=== PATIENT | female | born 1940 | race Caucasian/White ===

== ENCOUNTER 2016-07-03 17:01 | Emergency (ER) | payer BC, MEDICARE, OTHER ==
[2016-07-03 17:16] VITALS: BMI 26.6
[2016-07-03 17:19] VITALS: TEMP 99.5
--- NOTE | 2016-07-03 17:21 | EDPRACDOC ---
- General Information Chief Complaint: Dyspnea/Resp distress Stated Complaint: SHORTNESS OF BREATH Time Seen by Provider: 07/03/16 17:06 Information Source: Patient Mode Of Arrival: Ambulance Home Medications: Home Medications Furosemide [Lasix] 40 mg PO DAILY PRN 12/23/12 Alprazolam [Xanax] 0.5 - 1 mg PO BID 03/28/14 Gabapentin [Neurontin] 800 mg PO TID 08/22/14 Levothyroxine Sodium [Synthroid] 100 mcg PO DAILY 08/22/14 Promethazine [Phenergan] 25 mg PO TID PRN 08/22/14 Zolpidem Tartrate [Ambien Cr] 12.5 mg PO HS 08/22/14 Clonazepam [Klonopin] 1 mg PO HS 07/25/15 Lansoprazole [Prevacid] 30 mg PO DAILY 07/25/15 Morphine Sulfate [Morphine Sulfate ER] 30 mg PO TID 07/25/15 Oxycodone HCl/Acetaminophen [Percocet 10-325 mg Tablet] 1 tab PO Q6H PRN Azithromycin [Zithromax] 250 mg PO DAILY #4 tab 07/03/16 Ergocalciferol (Vitamin D2) [Vitamin D] 50,000 units PO Tu@0900 07/03/16 Allergies/Adverse Reactions: Allergies Allergy/AdvReac Type Severity Reaction Status Date / Time moxifloxacin HCl Allergy Intermediate Rash-Genera Verified 07/03/16 17:41 [From Avelox] lized - History of Present Illness Onset: TODAY HPI: PT HAS HAD SOB TODAY. SHE IS SUPPOSED TO WEAR OXYGEN 24 HRS/DAY SINCE HAVING BILATERAL PNEUMONIA IN OCTOBER. SHE HAS ONLY BEEN WEARING IT AT NIGHT. PT HAS HAD A COUGH. NO FEVER. Shortness of Breath: Moderate Relevant History: Reports: None Cough: Reports: Non-productive Rhinorrhea: Reports: None Ear Symptoms: Reports: None SOB Worsens with: Reports: Exertion SOB Improves with: Reports: Nothing Associated Signs and symptoms: Reports: Cough - Treatment Prior to ED Arrival Reported Medications/Treatment ESTIM[employer] PR[employer] MAKING Meds/Treatments Given O2 via Cannula EMS Treatment BLS IV No ED Past Medical History - Patient Medical History Cardiac History: Reports: Hypertension, Cardiac Catheterization, Syncope Respiratory History: Reports: COPD (With chronic respiratory failure and home O2 dependence.), Aspiration Pneumonia, Pneumonia GI/ History: Reports: Renal Disease (History of renal insufficiency), Urinary Tract Infection, Gastroesophageal Reflux, Ulcer (REQUIRED TRANSFUSION) Musculoskeletal History: Reports: Arthritis Psychological History: Reports: Anxiety. Denies: Depression, Substance Use Disorder Systemic History: Reports: Anemia, Hypothyroidism. Denies: Cancer Surgical History: Reports: Cholecystectomy, Hysterectomy (Total abdominal hysterectomy with bilateral salpingo oophorectomy), Cardiac Catheterization, Tonsillectomy/Adnoidectomy, Other (BILLROTH TYPE 1 GASTRECTOMY,BLADDER SUSPENSION, BACK SURGERY , KNEE RECONST) - Family Medical History Reports: Hypertension (sisters), Diabetes, Cancer (great neice-lung, sister- breast), Stroke (mother), Cardiac Disorders - Social Medical History Smoking Status: Never smoker Social History: Denies: Barbiturate Use, Substance Use Disorder ETOH: None Substance Abuse: None Lives In: Home EDM Review of Systems - Review of Systems ROS Negative Except as Marked: Yes All systems reviewed and were negative except as marked Respiratory: Shortness of Breath - Physical Exam Constitutional: Alert (Awake), No apparent distress Oriented to: Time, Person, Place Last recorded Vital Signs: Last Vital Signs Temp 99.5 F 07/03/16 17:18 Pulse 77 07/03/16 17:07 Resp 18 07/03/16 17:07 BP 138/67 07/03/16 17:07 Pulse Ox 97 07/03/16 17:07 Oxygen Pulse Oxygen Saturation 97 O2 Device Room Air Oxygen Flow Rate Fraction of Inspired Oxygen ( FIO2) - HEENT Head: Normal ( normocephalic) Eye Exam: Normal (PERRL, EOMI, Sclera white) Oropharynx: Normal (Pharynx:Moist without exudate,Gums-no swelling) ENT EAC: Normal TMJ: Normal Nose: No Symptoms Reported (septum midline) Neck: Normal (FROM, trachea at midline) - Respiratory/Cardiovascular Respiratory: Normal - CTA (BBS clear to auscultation without adventitious sounds ) Cardiovascular: Normal (RRR without murmur, gallop or rub) - GI Auscultation: Normal (NABS) Palpation: Normal (Soft,No rebound or guarding, non distended) Tenderness: Non tender Enriquez's Sign: Negative - Musculoskeletal Back: Normal (Non-Tender) Extremities: Normal (Normal tone, Pulses 2+ No cyanosis or edema, FROM) - Integumentary Skin: Normal, Warm, Dry Lymphatics: Normal (no adenopathy) - Neurologic Memory Impaired: Normal Motor Function: Normal (Normal tone, Pulses 2+ No cyanosis or edema, FROM) Cranial Nerve: Normal (CN II-X11 intact sensation, strength 5/5) Cerebellar: Normal Mood Description: Normal Thought: Coherent Perception: Normal ED SOB MDM - Re-evaluation Re-evaluation 1 Re-evaluation Time: 18:13 (IMPROVED) - Results Result Diagrams: 07/03/16 17:10 07/03/16 17:10 - EKG EKG #1 EKG Time: 17:14 -: Yes EKG interpreted by me Rate: bpm: 79 [place]: Normal Rhythm: NSR Block: None Hypertrophy: None ST: Normal Comparison: 10/17/15 - Diagnostic Imaging Chest Image interpreted by: Radiologist Diagnostic Imaging Comments: Central pulmonary vascular congestion. No focal pneumonia. Decision Time to Discharge: 18:13 - Departure Yes I personally saw and evaluated the patient. Disposition: Home Condition: Fair Final Diagnosis: Acute bronchitis Instructions: Acute Bronchitis (ED) Education/Counseling Given To: Patient Education/Counseling Given Regarding: Diagnosis, Treatment, Follow Up Prescriptions: Azithromycin [Zithromax] 250 mg PO DAILY #4 tab Additional Instructions: USE YOUR OXYGEN ORDERED BY YOUR
[2016-07-03 17:24] LABS: AUTOMATED BASOPHIL 0.7 % (0-2); AUTOMATED EOSINOPHIL 2.7 % (0-5); AUTOMATED LYMPH 17.3 % (17-44); AUTOMATED MONOCYTE 7.4 % (3-10); AUTOMATED NEUTROPHIL 71.9 % (45-76); MPV 9.6 fL (7.4-10.4)
[2016-07-03 17:27] LABS: ABG Draw Site Right Radial; ALLEN'S TEST PASS; BEb 6.4 (+/- 2); TCO2 35.3 MMOL/L (23-27)
[2016-07-03 17:34] LABS: PARTIAL THROMB. TIME 26.5 SEC (22-35); PT-INR 1.1
[2016-07-03 17:38] LABS: BLOOD UREA NITROGEN 15 MG/DL (7-17); CALCIUM 8.7 MG/DL (8.4-10.2); CALCULATED OSMOLALITY 275 MOs/Kg (270-290); CHLORIDE 96 mEq/L (98-107); GLUCOSE 117 MG/DL (70-99); SODIUM LEVEL 142 mEq/L (137-146); TOTAL PROTEIN 7.6 G/DL (6.3-8.2)
--- NOTE | 2016-07-03 17:44 | DIRPT ---
CLINICAL DATA: Severe shortness of breath, cough and congestion today. EXAM: PORTABLE CHEST 1 VIEW COMPARISON: October 18, 2015 FINDINGS: The heart size and mediastinal contours are stable. The heart size is probably mildly enlarged. There are enlarged caliber of central pulmonary vessels. There is no focal pneumonia or pleural effusion. The visualized skeletal structures are stable. IMPRESSION: Central pulmonary vascular congestion. No focal pneumonia. Electronically Signed By: Sam Beatty M.D. On: 07/03/2016 17:41
[2016-07-03 17:55] LABS: FREE T3 4.05 pg/mL (2.77-5.27); FREE T4 1.54 ng/dL (0.78-2.19)
[2016-07-03 18:09] LABS: hTSH 0.57 uIU/mL (0.5-4.67)
[2016-07-03] MEDS ORDERED: AZITHROMYCIN 250 MG TAB PO ONE (18:14)
[2016-07-03 18:37] VITALS: BP 124/60; PULSE 81
== END 2016-07-03 18:42 | disposition home or self-care (01) ==
LOC: ED 17:01
DX: J20.9 Acute bronchitis, unspecified (principal); E03.8 Other specified hypothyroidism
CPT/HCPCS: 36415; 36600; 71010; 80053; 82803; 83605; 84439; 84443; 84481; 84484; 85025; 85610; 85730; 87040; 93005; 99283; A9270; J3490